=== PATIENT | male | born 1960 | race African-American/Black ===

== ENCOUNTER 2023-07-11 13:25 | Outpatient (CLI) | payer BC | END 2023-07-11 13:26 | disposition home or self-care (01) | LOC: CSHRAD 13:25 | PROVIDERS: ATTEND Neurological Surgery | DX: M79.2 Neuralgia and neuritis, unspecified (principal); M47.812 Spondylosis without myelopathy or radiculopathy, cervical region; Z98.890 Other specified postprocedural states; M47.816 Spondylosis without myelopathy or radiculopathy, lumbar region | CPT/HCPCS: 72040; 72100 ==

== ENCOUNTER 2023-07-24 09:42 | Day surgery (SDC) | payer BC ==
[2023-07-24] MEDS ORDERED: Lidocaine 1% PF 5 ML VIAL ONE (10:08)
[2023-07-24] MEDS ORDERED: Sodium Bicarbonate 2.5 MEQ/5 ML SDV ONE (10:09)
[2023-07-24] MEDS ORDERED: Iopamidol-M 300 61% 15 ML VIAL ONE (10:13)
[2023-07-24 10:47] VITALS: BP 161/85; TEMP 97.4
[2023-07-24] MEDS ORDERED: FLU VACC QS2023-24(6MOS UP)/PF 60 MCG/0.5 ML SYRINGE IM ONE (11:00)
[2023-07-24] MEDS ORDERED: Acetaminophen 500 MG TAB ONE (11:22)
== END 2023-07-24 12:20 | disposition home or self-care (01) ==
LOC: CSHRAD 09:42
PROVIDERS: ATTEND Neurological Surgery
PROC: B00BYZZ Plain Radiography of Spinal Cord using Other Contrast (ICD-10-PCS; principal; 2023-07-24)
DX: M47.12 Other spondylosis with myelopathy, cervical region (principal); M54.50 Low back pain, unspecified; M54.6 Pain in thoracic spine
CPT/HCPCS: 36416; 62305; 72126; 72129; 72132; Q9967